=== PATIENT | female | born 1960 | race Caucasian/White ===

== ENCOUNTER 2024-11-30 09:46 | Outpatient (CLI) | payer OTHER, SELFPAY ==
--- NOTE | ~2024-11-30 | MR_ITS ---
MRI of the right hip Clinical history: Pain Technique: Coronal T1-weighted, T2-weighted, and proton-density fat-sat images, and axial T1-weighted and proton-density fat-sat images were acquired through the pelvis. Coronal T2-weighted images and c oronal, axial, and sagittal proton-density fat-sat images were acquired through the right hip. Findings: There is no acute fracture or avascular necrosis of either hip. There is diffuse high-grade chondral malacia the right hip joint area there is joint space narrowing with extensive osteophyte f ormation at the femoral head neck junction and acetabular margins. There is reactive subchondral bernice ow edema in the femoral head and superior acetabulum on the right side. Moderate right hip joint effu kenia is present, presumably reactive. There is degenerative tearing of the anterior acetabular labrum . There is minimal degenerative change of the left hip joint. No left hip joint effusion. Visualized musculature about the pelvis and right hip is unremarkable. No muscle atrophy or edema. Vi sualized tendons are intact. No soft tissue mass or fluid collection evident. IMPRESSION: Severe osteoarthritis of the right hip joint, as detailed above. Associated presumed reactive right h ip joint effusion and degenerative right anterior acetabular labral tearing. Reviewed, dictated and finalized at location M. IMPRESSION: Severe osteoarthritis of the right hip joint, as detailed above. Associated pre sumed reactive right hip joint effusion and degenerative right anterior acetabu lar labral tearing.
== END 2024-11-30 09:47 | disposition home or self-care (01) ==
LOC: GOSHIMG 09:48
PROVIDERS: Visit Provider Orthopaedic Surgery
DX: M16.11 Unilateral primary osteoarthritis, right hip (principal); M25.451 Effusion, right hip; S43.431A Superior glenoid labrum lesion of right shoulder, initial encounter; X58.XXXA Exposure to other specified factors, initial encounter
CPT/HCPCS: 73721